=== PATIENT | female | born 1955 | race Caucasian/White ===

== ENCOUNTER 2016-03-25 05:31 | Observation (INO) | payer BC ==
[~2016-03-25] VITALS: Ht 165.1 cm; Wt 105.0 kg
[~2016-03-25 05:31] MED LIST: AMLO5TAB2 PO; ATOR40TA16 PO; CARV3.12 PO; LOSA25TA PO; OMEP40CA2 PO; TRAM50TA PO
[2016-03-25] MEDS ORDERED: LACTATED RINGER'S 1000 ML IV SCH (06:00)
[2016-03-25] MEDS ORDERED: HEPARIN SODIUM - SQ 10,000 UNITS/ML VIAL SQ SCH (06:00)
[2016-03-25] MEDS ORDERED: SODIUM CHLORID 0.9% 500 ML IV SCH (06:00)
[2016-03-25] MEDS ORDERED: INSULIN HUMAN REGULAR 1,000 UNITS/10 ML VIAL SQ PRN (06:00)
[2016-03-25] MEDS ORDERED: ceFAZolin 2 GM PREMIX 50 ML IV SCH (06:00)
[2016-03-25] MEDS ORDERED: METOPROLOL TARTRATE 25 MG TAB PO PRN (06:00)
[2016-03-25 06:26] VITALS: BP 162/74; PULSE 70; RESP 16; TEMP 98.8; O2SAT 99
[2016-03-25] MEDS ORDERED: DICLOFENAC SODIUM 37.5 MG/ML VIAL IV PUSH ONE (07:02)
[2016-03-25] MEDS ORDERED: SUGAMMADEX SODIUM 200 MG/2 ML VIAL IV PUSH ONE ×2 (07:02)
[2016-03-25] MEDS ORDERED: HYDROmorphone HCL PF 2 MG/ML VIAL ONE (07:03)
[2016-03-25] MEDS ORDERED: ACETAMINOPHEN 1000 MG/100 ML VIAL IV ONE (07:03)
[2016-03-25] MEDS ORDERED: LIDOCAINE 1%/EPINEPHrine 1:100,000 SOLN 30 ML VIAL ONE (07:11)
[2016-03-25] MEDS ORDERED: DEXAMETHASONE SOD PHOS 4 MG/ML VIAL ONE (07:20)
[2016-03-25] MEDS ORDERED: MIDAZOLAM HCL 2 MG/2 ML VIAL ONE (07:20)
[2016-03-25] MEDS ORDERED: FAMOTIDINE 20 MG/2 ML VIAL ONE (07:20)
[2016-03-25] MEDS ORDERED: METHYLENE BLUE 100 MG/10 ML VIAL OTHER ONE (09:18)
[2016-03-25] MEDS ORDERED: ceFAZolin INJ 1,000 MG VIAL IV ONE (10:30)
[2016-03-25] MEDS ORDERED: SODIUM CHLORIDE 0.9% FLUSH 5 ML FLUSH FLUSH PRN (11:45)
[2016-03-25] MEDS ORDERED: NORMOSOL R INJ 1,000 ML IV ONE (12:00)
[2016-03-25] MEDS ORDERED: ONDANSETRON HCL 4 MG/2 ML VIAL IV PUSH ONE (12:00)
[2016-03-25] MEDS ORDERED: PROPOFOL 200 MG/20 ML AMP IV ONE (12:00)
[2016-03-25] MEDS: KETOROLAC TROMETHAMINE 30 MG/ML (IVP) VIAL IVP SCH ×3 (12:00→23:02)
[2016-03-25] MEDS ORDERED: oxyCODONE/ACETAMINOPHEN 5 MG/325 MG TAB PO PRN ×2 (12:00)
[2016-03-25] MEDS ORDERED: LACTATED RINGER'S 1000 ML INJ 1,000 ML IV ONE (12:00)
[2016-03-25] MEDS ORDERED: HYDROmorphone HCL PF 1 MG/ML VIAL IVP PRN (12:00)
[2016-03-25] MEDS: RESP: ALBUTEROL 2.5 MG/3 ML NEB (SCH) NEB ×3 (12:00→21:11)
[2016-03-25] MEDS ORDERED: ePHEDrine/NS 25 MG/5 ML SYR IV ONE (12:00)
[2016-03-25] MEDS ORDERED: DO NOT ADM ANY ANTICOAGULANT DRUGS XX PRN (12:00)
[2016-03-25] MEDS: D5-1/2 NS + KCL 20 MEQ INJ 1,000 ML IV SCH ×2 (12:14→23:03)
[2016-03-25] MEDS ORDERED: fentaNYL CITRATE 250 MCG/5 ML AMP ONE (12:42)
[2016-03-25] MEDS ORDERED: diphenhydrAMINE HCL 25 MG CAP PO PRN (13:00)
[2016-03-25] MEDS ORDERED: LORazepam 0.5 MG TAB PO PRN (13:00)
[2016-03-25] MEDS ORDERED: ONDANSETRON HCL 4 MG/2 ML VIAL IVP PRN (13:00)
[2016-03-25] MEDS ORDERED: *morphine SULFATE 8 MG/ML PERIprocedure ONLY ONE ×3 (13:07→14:06)
--- NOTE | 2016-03-25 16:13 | PD.ONC.PN ---
Subjective Subjective Remarks post op note: Patient is seen in PACU getting ready to be transferred up to 7 east. EYE SURGEON states she was slow to wean oxygen but otherwise doing well Patient states she has some pain but it is not bad. no n/v and feels thirsty Objective Data Date Time Temp Pulse Resp B/P Pulse Ox O2 Delivery O2 Flow Rate FiO2 03/25/16 15:00 75 12 146/77 94 Nasal Cannula 3 03/25/16 14:00 62 13 169/77 95 Nasal Cannula 3 03/25/16 13:15 66 13 167/76 95 Nasal Cannula 4 03/25/16 13:00 83 13 175/83 95 Nasal Cannula 4 03/25/16 12:45 75 13 166/84 96 Nasal Cannula 4 03/25/16 12:30 75 13 167/85 95 Nasal Cannula 4 03/25/16 12:15 82 13 144/75 94 Nasal Cannula 4 03/25/16 12:08 Nasal Cannula 4 03/25/16 12:00 73 13 126/68 96 Simple Mask 8 03/25/16 11:58 96.9 76 13 143/73 92 Simple Mask 8 03/25/16 06:26 98.8 70 16 162/74 99 03/25/16 03/25/16 03/25/16 07:00 15:00 23:00 Intake Total 2000 ml Output Total 1100 ml Balance 900 ml Laboratory Results Laboratory Tests Test 03/25/16 06:20 Blood Type O POSITIVE Antibody Screen NEGATIVE Blood Bank Comment Administered Medications Medications (Trade) Dose Ordered Sig/Ben Route PRN Reason Start Time Stop Time Status Last Admin Dose Admin Potassium Chloride/Dextrose/ Sod Cl (D5-1/2 NS + KCl 20 Meq Inj) 1,000 ml @ 100 mls/hr Q10H IV 03/25/16 12:00 03/25/16 12:14 Lorazepam (Ativan) 0.5 mg Q8H PRN PO ANXIETY 03/25/16 13:00 03/25/16 14:02 Objective Remarks GENERAL: Well-nourished, well-developed patient. SKIN: Warm and dry. HEAD: Normocephalic. EYES: No scleral icterus. No injection or drainage. CARDIOVASCULAR: Regular rate and rhythm without murmurs. RESPIRATORY: Breath sounds equal bilaterally. No accessory muscle use. GASTROINTESTINAL: Abdomen soft, non-tender, nondistended. SS are intact and clean EXTREMITIES: TEDs and SCDs MUSCULOSKELETAL: Adequate muscle tone. NEUROLOGICAL: No obvious focal deficit. Awake, alert, and oriented x3. PSYCHIATRIC: Appropriate mood and affect; insight and judgment normal. Assessment/Plan Problem List: (1) Endometrial cancer Status: Acute Plan: pathology is pending will follow up in our office in 2 weeks for final pathology (2) Post-operative state Status: Acute Plan: post op orders in chart will d/c gomes in the morning pain meds in EMR ADAT OOB to chair will anticipate d/c home in morning Chucho Carmen Mar 25, 2016 16:13
[2016-03-25 16:15] VITALS: BP 145/73; PULSE 79; RESP 18; TEMP 97.1; O2SAT 97
[2016-03-25 17:23] VITALS: O2SAT 97
[2016-03-25 20:00] VITALS: BP 131/57; PULSE 73; RESP 18; TEMP 97.7; O2SAT 95
[2016-03-25] MEDS ORDERED: ATORVASTATIN 40 MG TAB PO SCH (21:00)
[2016-03-25] MEDS: LOSARTAN 25 MG TAB PO SCH (21:00)
[2016-03-25] MEDS ORDERED: PANTOPRAZOLE SOD 40 MG DELAYED RELEASE TAB PO SCH (21:00)
[2016-03-25] MEDS: SODIUM CHLORIDE 0.9% FLUSH 5 ML FLUSH FLUSH SCH (21:00)
[2016-03-25] MEDS: CARVEDILOL 3.125 MG TAB PO SCH (22:58)
[2016-03-26] VITALS: BP 118/63; PULSE 76; RESP 18; TEMP 98.1; O2SAT 99
[2016-03-26 03:58] VITALS: O2SAT 97
[2016-03-26] MEDS: RESP: ALBUTEROL 2.5 MG/3 ML NEB (SCH) NEB ×2 (03:58→09:23)
[2016-03-26 04:00] VITALS: BP 149/68; PULSE 88; RESP 18; TEMP 97.9; O2SAT 98
[2016-03-26] MEDS: KETOROLAC TROMETHAMINE 30 MG/ML (IVP) VIAL IVP SCH (04:27)
[2016-03-26 06:54] LABS: AUTOMATED NEUTROPHIL # 9.3 TH/MM3 (1.8-7.7); BASOPHIL % 0.1 % (0.0-2.0); EOSINOPHIL % 0.2 % (0.0-4.0); HEMATOCRIT 33.2 % (35.0-46.0); HEMO FLAGS DIFF FINAL; LYMPH % 14.6 % (9.0-44.0); LYMPHOCYTE # 1.7 TH/MM3 (1.0-4.8); MEAN CELL VOLUME 81.2 FL (80.0-100.0); MEAN CORPUSCULAR HEMOGLOBIN 27.4 PG (27.0-34.0); MEAN CORPUSCULAR HGB CONC 33.7 % (32.0-36.0); MONO % 4.4 % (0.0-8.0); NEUT % 80.7 % (16.0-70.0); PLATELET COUNT 184 TH/MM3 (150-450); RED BLOOD COUNT 4.09 MIL/MM3 (4.00-5.30); RED CELL DISTRIBUTION WIDTH 13.9 % (11.6-17.2); WHITE BLOOD COUNT 11.5 TH/MM3 (4.0-11.0)
[2016-03-26 07:31] LABS: BICARBONATE 27.6 MEQ/L (21.0-32.0); POTASSIUM 3.7 MEQ/L (3.5-5.1)
[2016-03-26 08:00] VITALS: BP 159/71; PULSE 84; RESP 16; TEMP 99.2; O2SAT 96
[2016-03-26] MEDS ORDERED: OXYC1TAB63 PO (08:16)
[2016-03-26] MEDS: LOSARTAN 25 MG TAB PO SCH (08:57)
[2016-03-26] MEDS: CARVEDILOL 3.125 MG TAB PO SCH (08:57)
[2016-03-26] MEDS: SODIUM CHLORIDE 0.9% FLUSH 5 ML FLUSH FLUSH SCH (08:57)
[2016-03-26] MEDS ORDERED: amLODIPine BESYLATE 5 MG TAB PO SCH (09:00)
[2016-03-26 09:24] VITALS: O2SAT 96
--- NOTE | 2016-03-28 10:56 | MP ---
cc: AISHWARYA TUTTLE M.D., STEVEN C. DO MOLPUS,RICHY Davies MD DATE OF SURGERY 03/25/2016 PREOPERATIVE DIAGNOSIS 1. Postmenopausal bleeding. 2. Grade 1 endometrial adenocarcinoma. POSTOPERATIVE DIAGNOSIS 1. Postmenopausal bleeding. 2. Grade 1 endometrial adenocarcinoma. PROCEDURE Robotic-assisted laparoscopic hysterectomy, bilateral salpingo-oophorectomy, bilateral pelvic lymphadenectomy. SURGEON RICHY Spence MD MANAGER OF SECURITY [place] assistant unit forester ANESTHESIA general endotracheal anesthesia ESTIMATED BLOOD LOSS 200 cc IV FLUIDS 2000 cc URINE OUTPUT 900 cc HISTORY This is a 60-year-old female who reports postmenopausal bleeding of approximately two months duration sought evaluation, thickened endometrial stripe, biopsy showed grade one endometrial adenocarcinoma. She was seen and evaluated, counseled and presents now for surgical management. FINDINGS The uterine cavity sounded to 7-1/2 cm. Tubes and ovaries grossly appeared normal. There were some borderline prominent pelvic lymph nodes, but none overtly enlarged or definitively consistent with metastatic disease. There were no appreciably prominent lymph nodes in the para-aortic region to the extent evaluation was possible. In the peritoneal cavity, the liver diaphragm edges were smooth. The omentum, large and small bowel, adjacent mesentery were without any peritoneal implants. The uterus evaluated once removed showed a 3.5 cm tumor depth of invasion was passed 50% estimated to be perhaps 70% through the thickness of the myometrium. STATEMENT OF COMPLEXITY Complexity was increased given body habitus 103.5 kg. Modifier should be applied accordingly. PROCEDURE Patient taken to the operating room, placed in the dorsal lithotomy position after general endotracheal anesthesia was administered. A time-out was undertaken. The patient was identified by sight recognition and hospital ID bracelet and the proposed procedure was reviewed and confirmed. She was carefully positioned in padded Gil stirrups. Her arms were padded and secured to the sides. She was further secured to the operating table with egg crate padding tape in cross chest/over the shoulder fashion. All sites noted be properly aligned with no malalignments or pressure points. She was prepped and draped in a sterile fashion and placed in high lithotomy position. The introitus and cervix were nulliparous in appearance and narrow. The cervix was grasped. The uterine cavity sounded. The cervix dilated and a small V-Care manipulator was inserted and secured in the usual fashion. Mejia catheter placed in the bladder. She was returned to low lithotomy position. A change of sterile gloves was undertaken. We completed draping in anticipation of laparoscopy, confirmed that an orogastric airway was in the stomach on suction. With manual elevation of the abdominal wall and direct laparoscopic visualization, a 5 mm cannula introduced into the left upper quadrant. Carbon dioxide gas was insufflated. A 12 mm cannula placed in the midline above the umbilicus. An 8 mm cannula placed in right upper quadrant, left lateral quadrant and the original five exchanged for a 8-mm cannula. She placed in steep Trendelenburg position. Peritoneal washings were obtained for cytology. Anatomy was explored with findings as described above. Three Ray-Raymond sponges were placed around the root of the small bowel mesentery. Robotic system brought into operative field attached in the usual fashion. Monopolar scissors, fenestrated bipolar forceps and Prograsp manipulators were placed in arms #1, 2 and 3 respectively and I took my place at the surgeon's console. The right round ligament isolated, cauterized transected. Anterior and posterior leafs of the broad ligament were opened. The right ureter was identified. The right infundibulopelvic ligament was isolated. The intervening peritoneum was opened. The infundibulopelvic ligament was isolated to the level of the pelvic brim was cauterized and transected. Posterior peritoneum opened along the right side of uterus and cervix and right vesicouterine peritoneum dissected off the lower uterine segment and cervix. Right uterine vessels were skeletonized and cauterized. Attention was directed toward the left side where the left round ligament was isolated, cauterized and transected. The anterior and posterior leafs of the broad ligament were opened. The left ureter was identified. The left infundibulopelvic ligament was isolated. The intervening peritoneum was opened. The infundibulopelvic ligament was cauterized to the level of the pelvic brim and transected. Posterior peritoneum opened along left side of uterus and cervix. The left vesicouterine peritoneum dissected off the lower uterine segment and cervix. The left uterine vessels were skeletonized, cauterized and transected as were the cardinal, paracervical and uterosacral ligaments. Attention was redirected to the right side where the uterine vessels were now transected. The cardinal, paracervical and uterosacral ligaments were isolated, cauterized and transected. Colpotomy was performed the cervix from the upper vagina and the specimen was withdrawn transvaginally which included uterus, cervix, bilateral tubes and ovaries. A Pneumooccluder balloon was placed in the vagina to maintain pneumoperitoneum. Instruments one and three were exchanged for needle drivers as a 0 Vicryl suture was introduced. The vaginal cuff was closed starting at the left vaginal corner where a full-thickness closure including the edge of the uterosacral ligament, posterior peritoneum were incorporated, tied via instrument tie. The closure was held on countertraction as a running continuous full-thickness closure was carried across the vaginal cuff to the contralateral corner where it was similarly fixed, secured, tied via instrument tie and the needle was cut and removed. The bladder integrity was confirmed by inspection. There was good margin between the vaginal cuff suture line and the bladder and the pelvis was irrigated. Frozen section came back showing a larger tumor with greater than 50% invasion. Attention was directed toward evaluating the tissue at greatest risk, the pelvic lymph nodes. The right paravesical, pararectal and obturator spaces were opened. Lymphatic tissue was dissected with bipolar cautery and sharp dissection starting at the bifurcation of the iliac vessels carrying distally along the psoas muscle to the circumflex iliac vein. The medial border of dissection was the superior vesical artery and lymphatic tissue ventral to the obturator nerve was isolated, cauterized and removed and this en bloc specimen was placed in the right pelvis for later retrieval. Attention was directed toward the left side where similarly the pararectal, paravesical and obturator spaces were developed. Lymphatic tissue was removed following the same outline as on the right side. The genitofemoral nerve was isolated and spared. The dissection was carried out following the same borders. Small bleeders rendered hemostatic with bipolar cautery and the en bloc specimen placed in the left pelvis for later retrieval. Attempts to adequately expose the periaortic region were limited. There were fairly dense adhesions due to her prior appendicitis and appendectomy. With a short mesenteric root and redundant bowel and mesentery, exposure was difficult and it was felt that morbidity to address periaortic lymph nodes may exceed the potential benefit. Therefore, it was felt that all reasonable surgical objectives in this patient had been completed. Robotic instruments were removed. The robotic system was disengaged from the operative field. I reentered bedside under sterile condition. Each of the three Ray-Raymond sponges that had been placed were removed through the 12-mm cannula. Each were inspected and noted to be removed in their entirety. Now 12 mm EndoCatch bags expanding the 12 cm EndoCatch we used to capture first the left pelvic lymph nodes and then the right pelvic lymph nodes which were brought out through the 12-mm cannula. The pelvis was again irrigated. Hemostatic Destinee powder was placed across the vaginal cuff and in the apex of each pelvic lymph node dissection. There were no remaining foreign objects in the peritoneal cavity and preliminary counts were correct. The 12 mm fascial defect closed with a 0 Vicryl suture using a needle pass apparatus or fascia closure tied securely that rendered the fascia completely airtight and hemostatic. The remaining cannulas were withdrawn. Carbon dioxide gas was removed from the peritoneal cavity. 3-0 Vicryl subcutaneous 3-0 Vicryl subcuticular and Steri-Strips used to close the skin incisions. She was placed in the dorsal lithotomy position. Pelvic exam confirmed the vaginal cuff was well-supported, suture line was intact. There were no vaginal lacerations, but superficial irritation along the mucosa and on the perineum and the remaining specimen of Destinee was placed in the vagina to assist in continued hemostasis after confirming there were no remaining foreign objects in the vagina and final counts were correct. She was returned to dorsal supine position was pending reversal of anesthesia when I left the operating room to precede her to the Post Anesthesia Care Unit and to speak to family members who are waiting for her. MD DEBBY Olmos/NUSRAT /8:03 AM /10:33 AM
--- NOTE | 2016-03-31 04:21 | MD ---
cc: ASHISH ESPINOZA HEATHER M. M.D. MOLPUS,RICHY Davies MD ADMISSION DATE: 03/25/2016 DISCHARGE DATE: 03/26/2016 PROCEDURE: 03/25/2016, robotic-assisted laparoscopic hysterectomy, bilateral salpingo-oophorectomy, bilateral pelvic lymphadenectomy. HOSPITAL COURSE She did well during the first 24 hours after surgery. No complaints, tolerating oral intake, catheter removed, voiding satisfactorily. She has been out of bed without difficulty. OBJECTIVE Ins and outs 2399 over 1958. Labs this morning: H&H are 11.2 over 33.2. Electrolytes essentially normal, BUN, creatinine 14 and 0.74. PHYSICAL EXAMINATION: She is afebrile, pulse 73-88, respirations 18, blood pressure 118-149 over 57-68, O2 saturations greater than or equal to 97%. Alert, oriented x3 in no acute distress. Lungs: Clear except for mild basilar rales. Cardiovascular: Regular rate and rhythm. Abdomen: Soft. There is some distension in midline above the umbilicus. It was noted preoperatively that she had a midline diastases recti, no hernia, and no hernia was detected at the time of surgery. She has some mild tenderness there and there may be an element of some tissue edema or possible seroma, there is no discoloration, no ecchymosis, nonacute. 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 Extremities: Nontender, SCDs intact. ASSESSMENT Postop day #1 doing well in early postoperative period. Steps at surgery and preliminary pathology were reviewed. The activity and restrictions were again discussed. She is to resume prior medications. She can tolerate Percocet satisfactorily. She also has tramadol at home and prescription for Percocet provided. Questions were asked and answered to the best of my capacity. She expressed good understanding. PLAN Therefore anticipate discharge to home. She is to call our office to schedule follow up in 2 weeks or to contact our office between now and the time of scheduled followup should she have any questions or problems in the interim. MD DEBBY Olmos/KENDRICK /8:20 AM /3:53 AM
== END 2016-03-26 11:31 | disposition home or self-care (01) ==
LOC: HSDC 05:31 → HSDI 11:47 → HOCA 16:04
PROVIDERS: ADMIT Obstetrics & Gynecology Gynecologic Oncology; ATTEND Obstetrics & Gynecology Gynecologic Oncology
DX: C54.1 Malignant neoplasm of endometrium (principal); D25.9 Leiomyoma of uterus, unspecified; N95.0 Postmenopausal bleeding; N83.8 Other noninflammatory disorders of ovary, fallopian tube and broad ligament; I10 Essential (primary) hypertension; E78.5 Hyperlipidemia, unspecified; K21.9 Gastro-esophageal reflux disease without esophagitis
CPT/HCPCS: 00840; 38571; 58552; 80048; 85025; 86850; 86900; 86901; 88307; 88309; 88329; 94150; 94640; 94664; G0378; J0131; J0690; J1100; J1130; J1170; J1644; J1885; J2250; J2270; J2405; J3010; J3480; J7120; J7613; 88305

== ENCOUNTER 2016-06-03 10:09 | Day surgery (SDC) | payer BC ==
[~2016-06-03] VITALS: Ht 165.1 cm; Wt 86.4 kg
[~2016-06-03 10:09] MED LIST changes: +OXYC1TAB63 PO
[2016-06-03 10:24] VITALS: BP 199/101; PULSE 89; RESP 20; TEMP 98.4; O2SAT 99
[2016-06-03] MEDS ORDERED: SODIUM CHLORIDE 0.9% 1000 ML IV SCH (11:30)
[2016-06-03 12:53] LABS: AUTOMATED NEUTROPHIL # 4.9 TH/MM3 (1.8-7.7); BASOPHIL # 0.1 TH/MM3 (0-0.2); BASOPHIL % 0.6 % (0.0-2.0); EOSINOPHIL # 0.2 TH/MM3 (0-0.4); EOSINOPHIL % 2.8 % (0.0-4.0); HEMO FLAGS DIFF FINAL; LYMPHOCYTE # 2.1 TH/MM3 (1.0-4.8); MEAN CORPUSCULAR HEMOGLOBIN 27.3 PG (27.0-34.0); MEAN CORPUSCULAR HGB CONC 33.7 % (32.0-36.0); MONO % 7.5 % (0.0-8.0); NEUT % 62.1 % (16.0-70.0); PLATELET COUNT 200 TH/MM3 (150-450); RED CELL DISTRIBUTION WIDTH 14.4 % (11.6-17.2)
[2016-06-03 13:07] LABS: APTT (PATIENT) 26.4 SEC (24.3-30.1); PROTHROMBIN TIME - PATIENT 10.7 SEC (9.8-11.6)
--- NOTE | 2016-06-03 13:24 | RADRPT ---
EXAM DATE/TIME: 06/03/2016 11:52 [facility] COMPARISON: No previous studies available for comparison. INDICATIONS : Patient needs IV for procedure in CT. MEDICAL HISTORY : Ovarian masses HTN CAD Hypercholesterolemia Asthma Hx kidney stones Valvular disease Arthritis Seizure 2001 Uterine cancer 2016 SURGICAL HISTORY : Cholecystectomy Caesarean section D & C Right foot surgery Right knee surgery Sinus surgery Tonsillectomy Laparoscopic robotic hysterectomy, BSO, pelvic lymphadenectomy 2016 ENCOUNTER: Initial ACUITY: 1 day PAIN SCORE: 0/10 IMAGE SERIES: ACCESS: Left basilic vein DEVICE(S): 1.) 3/4 [place] Dilator PROCEDURE : 1. Ultrasound guided venous access. The risks, benefits and alternatives to the procedure were explained and verbal and written consent w as obtained. The site was prepped in sterile fashion. Full sterile technique was used, including ca p, mask, sterile gloves and gown and a large sterile sheet. Hand hygiene and 2% chlorhexidine and/or betadine/alcohol prep was utilized per protocol for cutaneous antisepsis. The skin and subcutaneous tissues were infiltrated with local anesthetic solution. With ultrasound guidance the prescribed vein was punctured for venous access. A 4 [place] dilator was placed and was flushed and locked with heparin. The patient tolerated procedure well and there were n o complications. CONCLUSION: Uncomplicated ultrasound guided venous access. Ney Mendoza MD on June 03, 2016 at 13:21 Board Certified Radiologist. This report was verified electronically.
[2016-06-03] MEDS ORDERED: fentaNYL CITRATE 250 MCG/5 ML AMP ONE (14:15)
[2016-06-03] MEDS ORDERED: MIDAZOLAM HCL 5 MG/5 ML VIAL ONE (14:15)
[2016-06-03 15:15] VITALS: BP 195/92; PULSE 76; RESP 20; TEMP 98.2; O2SAT 99
[2016-06-03 15:30] VITALS: BP 173/96; PULSE 85; RESP 20; O2SAT 98
[2016-06-03 15:45] VITALS: BP 207/100; PULSE 70; RESP 20; O2SAT 98
[2016-06-03 16:00] VITALS: BP 207/95; PULSE 76; RESP 20; O2SAT 98
[2016-06-03] MEDS ORDERED: cloNIDine HCL 0.1 MG TAB PO ONE (16:15)
[2016-06-03] MEDS ORDERED: cloNIDine HCL 0.1 MG TAB PO PRN (16:15)
[2016-06-03 16:40] VITALS: BP 184/88; PULSE 76; RESP 20; O2SAT 98
--- NOTE | 2016-06-04 17:59 | RADRPT ---
EXAM DATE/TIME: 06/03/2016 14:19 [facility] COMPARISON: No previous studies available for comparison. INDICATIONS : Left external iliac region heriberto mass. SEDATION TIME: 20 minutes MEDICATION(S): 1.) 3 mg midazolam (Versed) IV 2.) 150 mcg fentanyl (Sublimaze) DEVICE(S): 1.) 18 gauge Rodriguez blunt needle FLUID: Total volume of 10 cc of clear, yellow fluid was removed. Fluid was sent for laboratory ordered studies. MEDICAL HISTORY : Hypertension. endometrial cancer SURGICAL HISTORY : Hysterectomy. ENCOUNTER: Initial ACUITY: 1 day PAIN SCORE: 0/10 LOCATION: Bilateral pelvis PROCEDURE: 1.) Conscious sedation with continuous EKG and oximetry monitoring. 2.) EKG and oximetry remained stable throughout the procedure. PROCEDURE : CT guided aspiration of fluid in the left pelvic sidewall The risks, benefits and alternatives to the procedure were explained and verbal and written consent w as obtained. Using automated exposure control and adjustment of the mA and/or kV according to patien t size, radiation dose was kept as low as reasonably achievable to obtain optimal diagnostic quality images. The site was prepped in sterile fashion. Full sterile technique was used, including cap, ma sk, sterile gloves and gown and a large sterile sheet. Hand hygiene and 2% chlorhexidine and/or beta dine/alcohol prep was utilized per protocol for cutaneous antisepsis. The skin and subcutaneous tiss ues were infiltrated with local anesthetic solution. CONCLUSION: Uncomplicated CT-guided aspiration. Approximately 10 cc of clear fluid aspirated. Mak Martinez MD on June 04, 2016 at 17:56 Board Certified Radiologist. This report was verified electronically.
== END 2016-06-03 16:45 | disposition home or self-care (01) ==
LOC: HRAD 10:09 → HRIP 10:09 → HRAD 16:45
PROVIDERS: ATTEND Obstetrics & Gynecology Gynecologic Oncology
DX: C54.1 Malignant neoplasm of endometrium (principal); I10 Essential (primary) hypertension; E78.00 Pure hypercholesterolemia, unspecified; I25.10 Atherosclerotic heart disease of native coronary artery without angina pectoris; J45.909 Unspecified asthma, uncomplicated; Z87.442 Personal history of urinary calculi
CPT/HCPCS: 36410; 50390; 76937; 77012; 85025; 85610; 85730; 87015; 87070; 87102; 87116; 87205; 87206; 99152; 99153; J2250; J3010; J7030